=== PATIENT | male | born 1965 | race Caucasian/White ===

== ENCOUNTER 2023-03-21 03:00 | Emergency (ER) | payer OTHER ==
[2023-03-21] MEDS ORDERED: Acetaminophen 500 MG Tab PO ONE (03:26)
== END 2023-03-21 04:48 | disposition home or self-care (01) ==
LOC: MW.ED 03:00
DX: S06.0XAA Concussion with loss of consciousness status unknown, initial encounter (principal); W22.8XXA Striking against or struck by other objects, initial encounter; Y93.01 Activity, walking, marching and hiking; Y92.89 Other specified places as the place of occurrence of the external cause; Y99.0 Civilian activity done for income or pay
CPT/HCPCS: 70450; 99283; A9270